=== PATIENT | male | born 1950 ===

== ENCOUNTER 2020-12-24 18:09 | Outpatient (REF) | payer SELFPAY ==
[2020-12-24 13:51] LABS: Abs Immature Grans 0.06 10^3/uL (0.0-0.06); Absolute Basophil Count 0.03 10^3/uL (0.0-0.2); Absolute Eosinophil Count 0.07 10^3/uL (0.0-0.7); Absolute Monocyte Count 0.74 10^3/uL (0.1-0.8); Absolute Neutrophil Count 1.75 10^3/uL (1.2-6.7); Basophils % 0.8; Eosinophils % 1.8; HCT 42.1 % (40.0-50.0); HGB 13.6 g/dL (13.5-17.5); Immature Grans % 1.6; Lymphocytes % 31.2; MCH 32.2 pg (27.0-33.0); MCHC 32.3 % (32.0-36.0); MCV 99.5 fL (80-95); MPV 8.1 fL (8.0-11.0); Monocytes % 19.2; Neutrophils % 45.4; Nucleated RBC 0 %; Platelet Count 270 10^3/uL (130-400); RBC 4.23 10^6/uL (4.36-5.78); RDW 14.3 % (11.8-14.1); RDW-SD 51.2 fL; WBC 3.85 10^3/uL (4.4-10.8)
[2020-12-24 14:24] LABS: ALT 21 U/L (16-63); AST 15 U/L (15-37); Albumin 3.2 g/dL (3.4-5.0); Alkaline Phosphatase 79 U/L (46-116); Anion Gap 7.1 mmol/L (3-11); BUN 21 mg/dL (7-18); Bilirubin, Total 0.2 mg/dL (0.2-1.0); CO2 27.9 mmol/L (21.0-32.0); Calcium 8.6 mg/dL (8.5-10.1); Chloride 107 mmol/L (98-107); Glucose 92 mg/dL (74-106); Potassium 4.2 mmol/L (3.5-5.1); Sodium 142 mmol/L (136-145); Total Protein 7.3 g/dL (6.4-8.2)
== END 2020-12-24 18:10 | disposition home or self-care (01) ==
LOC: LBN 18:09
PROVIDERS: Visit Provider Internal Medicine Hematology & Oncology
DX: C34.92 Malignant neoplasm of unspecified part of left bronchus or lung (principal)
CPT/HCPCS: 80053; 85025